=== PATIENT | female | born 1930 | race Caucasian/White ===

== ENCOUNTER 2016-08-11 04:38 | Inpatient (IN) | payer MEDICARE, MEDICAID ==
[2016-08-11] VITALS (20 sets, daily range): BP systolic 124–183; RESP 13–28; TEMP 98.4–99; Ht 152.4 cm; Wt 59.0 kg
[~2016-08-11] VITALS: Ht 152.4 cm; Wt 59.0 kg
[2016-08-11] MEDS ORDERED: DUONEB INH ONE (04:54)
[2016-08-11] MEDS ORDERED: NEB-XOPENEX 1.25 MG/3 ML INH ONE ×2 (05:16→05:20)
[2016-08-11] MEDS ORDERED: Furosemide 40 MG/4 ML VIAL ONE (05:20)
[2016-08-11] MEDS ORDERED: METHYLPRED SOD SUCC 125 MG/2 ML VIAL ONE (05:20)
[2016-08-11] MEDS ORDERED: NITROGLYCERIN/D5W 250 ML IV ONE (05:21)
[2016-08-11] MEDS ORDERED: VANCOMYCIN 2,000 MG in SODIUM CHLORIDE 0.9% 500 ML IV ONE (05:25)
[2016-08-11] MEDS ORDERED: SODIUM CHLORIDE 0.9% 500 ML IV ONE (05:35)
[2016-08-11] MEDS ORDERED: CEFEPIME 1,000 MG in SODIUM CHLORIDE 0.9% 100 ML IV ONE (05:45)
[2016-08-11] MEDS ORDERED: NEB-XOPENEX 0.63 MG/3 ML INH PRN (06:20)
[2016-08-11] MEDS ORDERED: ACETAMINOPHEN 325 MG TAB PO PRN (06:20)
[2016-08-11] MEDS ORDERED: PHARMACY TO DOSE VANCOMYCIN IV SCH (06:20)
[2016-08-11] MEDS ORDERED: VANCOMYCIN 500 MG in SODIUM CHLORIDE 0.9% 100 ML IV ONE (06:40)
[2016-08-11] MEDS: DUONEB INH SCH ×5 (07:00→22:08)
[2016-08-11] MEDS: Furosemide 40 MG/4 ML VIAL IV SCH ×2 (07:48→20:15)
[2016-08-11] MEDS: CEFTRIAXONE 1 GM in SODIUM CHLORIDE 0.9% 50 ML IV SCH (07:57)
[2016-08-11] MEDS ORDERED: GLUCAGON 1 MG VIAL IM PRN (09:55)
[2016-08-11] MEDS ORDERED: DEXTROSE 50% SYRINGE 50 ML IV PRN (09:55)
[2016-08-11] MEDS: ENOXAPARIN 30 MG/0.3 ML SYR SUBQ SCH (11:56)
[2016-08-11] MEDS: METHYLPRED SOD SUCC 125 MG/2 ML VIAL IV SCH ×3 (11:56→23:31)
[2016-08-11] MEDS: OXYCODONE/APAP 5/325 TAB PO PRN ×2 (16:45→22:31)
[2016-08-11] MEDS: FAMOTIDINE 20 MG INJ IV SCH (20:15)
[2016-08-11] MEDS: Carvedilol 6.25 MG TAB PO SCH (20:16)
[2016-08-11] MEDS: DOCUSATE SOD 100 MG CAP PO SCH (20:16)
[2016-08-12] VITALS (24 sets, daily range): BP systolic 139–188; RESP 13–31; TEMP 97.6–98.7
[2016-08-12] MEDS: DUONEB INH SCH ×6 (02:26→23:10)
[2016-08-12] MEDS: OXYCODONE/APAP 5/325 TAB PO PRN ×2 (04:54→09:37)
[2016-08-12] MEDS: VANCOMYCIN 1,000 MG in SODIUM CHLORIDE 0.9% 250 ML IV SCH (06:14)
[2016-08-12] MEDS: METHYLPRED SOD SUCC 125 MG/2 ML VIAL IV SCH ×3 (06:16→18:02)
[2016-08-12] MEDS: CEFTRIAXONE 1 GM in SODIUM CHLORIDE 0.9% 50 ML IV SCH (08:43)
[2016-08-12] MEDS: DOCUSATE SOD 100 MG CAP PO SCH ×2 (08:46→19:57)
[2016-08-12] MEDS: FAMOTIDINE 20 MG INJ IV SCH ×2 (08:47→19:56)
[2016-08-12] MEDS: Carvedilol 6.25 MG TAB PO SCH ×2 (08:47→19:57)
[2016-08-12] MEDS: Furosemide 40 MG/4 ML VIAL IV SCH ×2 (08:47→19:56)
[2016-08-12] MEDS: ENOXAPARIN 30 MG/0.3 ML SYR SUBQ SCH (08:48)
[2016-08-12] MEDS ORDERED: oxyCODONE/APAP 10/325 TABLET PO PRN (12:50)
[2016-08-12] MEDS: LEVEMIR INSULIN SUBQ SCH ×2 (13:41→17:00)
[2016-08-12] MEDS: PREGABALIN 25 MG CAP PO SCH ×2 (13:41→19:57)
[2016-08-12] MEDS: oxyCODONE/APAP 10/325 TABLET PO PRN ×2 (13:50→19:59)
[2016-08-13] VITALS (24 sets, daily range): BP systolic 135–179; RESP 10–25; TEMP 98–98.7
[2016-08-13] MEDS: METHYLPRED SOD SUCC 125 MG/2 ML VIAL IV SCH ×4 (00:53→17:54)
[2016-08-13] MEDS: oxyCODONE/APAP 10/325 TABLET PO PRN ×4 (02:20→21:13)
[2016-08-13] MEDS: DUONEB INH SCH ×6 (02:50→22:19)
[2016-08-13] MEDS: VANCOMYCIN 1,000 MG in SODIUM CHLORIDE 0.9% 250 ML IV SCH (05:49)
[2016-08-13] MEDS: CEFTRIAXONE 1 GM in SODIUM CHLORIDE 0.9% 50 ML IV SCH (08:51)
[2016-08-13] MEDS: Furosemide 40 MG/4 ML VIAL IV SCH ×2 (08:53→20:06)
[2016-08-13] MEDS: LACTULOSE SOLN 20GM/30ML UDC PO SCH (08:53)
[2016-08-13] MEDS: Carvedilol 6.25 MG TAB PO SCH ×2 (08:54→20:07)
[2016-08-13] MEDS: DOCUSATE SOD 100 MG CAP PO SCH ×2 (08:54→20:07)
[2016-08-13] MEDS: PREGABALIN 25 MG CAP PO SCH ×2 (08:54→20:07)
[2016-08-13] MEDS: MULTIVITS/MIN (OCUVITE) TAB PO SCH (08:54)
[2016-08-13] MEDS: FAMOTIDINE 20 MG INJ IV SCH ×2 (08:54→20:07)
[2016-08-13] MEDS: ENOXAPARIN 30 MG/0.3 ML SYR SUBQ SCH (08:55)
[2016-08-13] MEDS: LEVEMIR INSULIN SUBQ SCH ×2 (08:56→17:53)
[2016-08-14] VITALS (20 sets, daily range): BP systolic 121–187; RESP 10–26; TEMP 97.8–98.5
[2016-08-14] MEDS: METHYLPRED SOD SUCC 125 MG/2 ML VIAL IV SCH ×3 (00:44→12:23)
[2016-08-14] MEDS: OXYCODONE/APAP 5/325 TAB PO PRN ×3 (00:44→16:38)
[2016-08-14] MEDS: DUONEB INH SCH ×6 (02:30→22:09)
[2016-08-14] MEDS: VANCOMYCIN 1,000 MG in SODIUM CHLORIDE 0.9% 250 ML IV SCH (06:45)
[2016-08-14] MEDS: LEVEMIR INSULIN SUBQ SCH ×2 (08:00→17:00)
[2016-08-14] MEDS: FAMOTIDINE 20 MG INJ IV SCH (08:53)
[2016-08-14] MEDS: Furosemide 40 MG/4 ML VIAL IV SCH ×2 (08:53→21:16)
[2016-08-14] MEDS: DOCUSATE SOD 100 MG CAP PO SCH ×2 (08:56→21:15)
[2016-08-14] MEDS: Carvedilol 6.25 MG TAB PO SCH ×2 (08:56→21:16)
[2016-08-14] MEDS: PREGABALIN 25 MG CAP PO SCH ×2 (08:56→21:16)
[2016-08-14] MEDS: LACTULOSE SOLN 20GM/30ML UDC PO SCH (08:56)
[2016-08-14] MEDS: MULTIVITS/MIN (OCUVITE) TAB PO SCH (08:57)
[2016-08-14] MEDS: ENOXAPARIN 30 MG/0.3 ML SYR SUBQ SCH (08:58)
[2016-08-14] MEDS: CEFTRIAXONE 1 GM in SODIUM CHLORIDE 0.9% 50 ML IV SCH (08:59)
[2016-08-14] MEDS: oxyCODONE/APAP 10/325 TABLET PO PRN ×2 (12:23→21:26)
[2016-08-14] MEDS ORDERED: LEVEMIR INSULIN SUBQ SCH (17:35)
[2016-08-15] VITALS (7 sets, daily range): BP systolic 153–184; RESP 16–20; TEMP 97.3–98.5
[2016-08-15] MEDS: DUONEB INH SCH ×5 (02:11→18:55)
[2016-08-15] MEDS: oxyCODONE/APAP 10/325 TABLET PO PRN ×4 (03:31→23:31)
[2016-08-15] MEDS ORDERED: VANCOMYCIN 1,250 MG in SODIUM CHLORIDE 0.9% 250 ML IV SCH (06:00)
[2016-08-15] MEDS: PANTOPRAZOLE 40 MG TAB PO SCH (06:26)
[2016-08-15] MEDS: CEFTRIAXONE 1 GM in SODIUM CHLORIDE 0.9% 50 ML IV SCH (09:05)
[2016-08-15] MEDS: METHYLPRED SOD SUCC 125 MG/2 ML VIAL IV SCH ×2 (09:06→21:15)
[2016-08-15] MEDS: Furosemide 40 MG/4 ML VIAL IV SCH ×2 (09:06→21:15)
[2016-08-15] MEDS: LACTULOSE SOLN 20GM/30ML UDC PO SCH (09:08)
[2016-08-15] MEDS: LEVEMIR INSULIN SUBQ SCH ×2 (09:08→17:58)
[2016-08-15] MEDS: DOCUSATE SOD 100 MG CAP PO SCH ×2 (09:08→21:14)
[2016-08-15] MEDS: MULTIVITS/MIN (OCUVITE) TAB PO SCH (09:09)
[2016-08-15] MEDS: PREGABALIN 25 MG CAP PO SCH ×2 (09:09→21:14)
[2016-08-15] MEDS: Carvedilol 6.25 MG TAB PO SCH ×2 (09:10→21:32)
[2016-08-15] MEDS: ENOXAPARIN 30 MG/0.3 ML SYR SUBQ SCH (09:10)
[2016-08-15] MEDS ORDERED: FLEET ENEMA 132 ML BTL RECTAL PRN (20:15)
[2016-08-15] MEDS ORDERED: MISSING DOSE XX ONE (20:20)
[2016-08-15] MEDS: KCL CR 8 MEQ TAB PO SCH (21:14)
[2016-08-15] MEDS: POLYETHYLENE GLYCOL 17 GM PACKET PO SCH (21:32)
[2016-08-15] MEDS: LIDOCAINE 5% 700 MG PATCH TOPICAL SCH (21:32)
[2016-08-15] MEDS: NEB-ATROVENT INH SCH (23:52)
[2016-08-15] MEDS: NEB-XOPENEX 0.63 MG/3 ML INH SCH (23:52)
[2016-08-16 03:50] VITALS: BP_SYST 182; RESP 16; TEMP 98.8
[2016-08-16] MEDS: oxyCODONE/APAP 10/325 TABLET PO PRN ×3 (05:35→18:01)
[2016-08-16] MEDS: NEB-ATROVENT INH SCH ×4 (07:01→23:53)
[2016-08-16] MEDS: NEB-BUDESONIDE 0.5 MG INH SCH ×2 (07:01→20:02)
[2016-08-16] MEDS: NEB-XOPENEX 0.63 MG/3 ML INH SCH ×3 (07:02→20:02)
[2016-08-16 07:26] VITALS: BP_SYST 181; RESP 18; TEMP 98
[2016-08-16] MEDS: PANTOPRAZOLE 40 MG TAB PO SCH (07:38)
[2016-08-16] MEDS: METHYLPRED SOD SUCC 125 MG/2 ML VIAL IV SCH (09:24)
[2016-08-16] MEDS: MULTIVITS/MIN (OCUVITE) TAB PO SCH (09:24)
[2016-08-16] MEDS: DOCUSATE SOD 100 MG CAP PO SCH ×2 (09:24→20:20)
[2016-08-16] MEDS: LACTULOSE SOLN 20GM/30ML UDC PO SCH (09:24)
[2016-08-16] MEDS: Furosemide 40 MG/4 ML VIAL IV SCH ×2 (09:24→20:20)
[2016-08-16] MEDS: POLYETHYLENE GLYCOL 17 GM PACKET PO SCH ×3 (09:24→20:21)
[2016-08-16] MEDS: CEFTRIAXONE 1 GM in SODIUM CHLORIDE 0.9% 50 ML IV SCH (09:24)
[2016-08-16] MEDS: Carvedilol 6.25 MG TAB PO SCH ×2 (09:24→20:20)
[2016-08-16] MEDS: PREGABALIN 25 MG CAP PO SCH ×2 (09:24→20:21)
[2016-08-16] MEDS: KCL CR 8 MEQ TAB PO SCH ×3 (09:25→20:21)
[2016-08-16] MEDS: LIDOCAINE 5% 700 MG PATCH TOPICAL SCH (09:25)
[2016-08-16] MEDS: ENOXAPARIN 30 MG/0.3 ML SYR SUBQ SCH (09:25)
[2016-08-16] MEDS: LEVEMIR INSULIN SUBQ SCH ×2 (09:26→18:19)
[2016-08-16 11:23] VITALS: BP_SYST 181; RESP 20; TEMP 98.3
[2016-08-16 15:52] VITALS: BP_SYST 180; RESP 20; TEMP 98.1
[2016-08-16 19:09] VITALS: BP_SYST 198; TEMP 98
[2016-08-16 23:21] VITALS: BP_SYST 181; RESP 18; TEMP 98.2
[2016-08-17] MEDS: oxyCODONE/APAP 10/325 TABLET PO PRN ×4 (00:09→19:58)
[2016-08-17 03:43] VITALS: BP_SYST 157; RESP 18; TEMP 98.4
[2016-08-17] MEDS: NEB-ATROVENT INH SCH ×4 (06:08→23:33)
[2016-08-17] MEDS: NEB-XOPENEX 0.63 MG/3 ML INH SCH ×3 (06:08→18:46)
[2016-08-17] MEDS: NEB-BUDESONIDE 0.5 MG INH SCH ×2 (06:08→18:46)
[2016-08-17] MEDS: PANTOPRAZOLE 40 MG TAB PO SCH (07:00)
[2016-08-17 07:53] VITALS: BP_SYST 177; RESP 18; TEMP 97.8
[2016-08-17] MEDS ORDERED: METHYLPRED SOD SUCC 125 MG/2 ML VIAL IV SCH (09:00)
[2016-08-17] MEDS: CEFTRIAXONE 1 GM in SODIUM CHLORIDE 0.9% 50 ML IV SCH (09:23)
[2016-08-17] MEDS: POLYETHYLENE GLYCOL 17 GM PACKET PO SCH ×3 (09:24→21:00)
[2016-08-17] MEDS: PREGABALIN 25 MG CAP PO SCH ×3 (09:24→21:00)
[2016-08-17] MEDS: KCL CR 8 MEQ TAB PO SCH ×3 (09:25→19:57)
[2016-08-17] MEDS: DOCUSATE SOD 100 MG CAP PO SCH ×2 (09:25→21:00)
[2016-08-17] MEDS: LACTULOSE SOLN 20GM/30ML UDC PO SCH (09:25)
[2016-08-17] MEDS: Carvedilol 6.25 MG TAB PO SCH ×2 (09:25→19:58)
[2016-08-17] MEDS: Furosemide 40 MG/4 ML VIAL IV SCH ×2 (09:26→20:00)
[2016-08-17] MEDS: ENOXAPARIN 30 MG/0.3 ML SYR SUBQ SCH (09:27)
[2016-08-17] MEDS: MULTIVITS/MIN (OCUVITE) TAB PO SCH (09:27)
[2016-08-17] MEDS: LIDOCAINE 5% 700 MG PATCH TOPICAL SCH (09:28)
[2016-08-17] MEDS: LEVEMIR INSULIN SUBQ SCH (09:54)
[2016-08-17 10:17] VITALS: BP_SYST 188; RESP 18; TEMP 97.7
[2016-08-17 15:26] VITALS: BP_SYST 147; RESP 18; TEMP 98.2
[2016-08-17] MEDS ORDERED: LEVEMIR INSULIN SUBQ SCH (16:00)
[2016-08-17 19:30] VITALS: BP_SYST 182; RESP 18; TEMP 97.5
[2016-08-17 23:28] VITALS: BP_SYST 151; RESP 18; TEMP 97.9
[2016-08-18] MEDS: oxyCODONE/APAP 10/325 TABLET PO PRN ×2 (02:14→08:26)
[2016-08-18 03:49] VITALS: BP_SYST 136; RESP 18; TEMP 97.8
[2016-08-18] MEDS: PANTOPRAZOLE 40 MG TAB PO SCH (06:31)
[2016-08-18] MEDS: NEB-XOPENEX 0.63 MG/3 ML INH SCH ×2 (06:39→11:37)
[2016-08-18] MEDS: NEB-ATROVENT INH SCH ×2 (06:39→11:37)
[2016-08-18] MEDS: NEB-BUDESONIDE 0.5 MG INH SCH (06:39)
[2016-08-18 07:13] VITALS: BP_SYST 173; RESP 16; TEMP 98.1
[2016-08-18] MEDS: Furosemide 40 MG/4 ML VIAL IV SCH (08:27)
[2016-08-18] MEDS: PREGABALIN 25 MG CAP PO SCH (08:28)
[2016-08-18] MEDS: MULTIVITS/MIN (OCUVITE) TAB PO SCH (08:29)
[2016-08-18] MEDS: KCL CR 8 MEQ TAB PO SCH (08:29)
[2016-08-18] MEDS: LACTULOSE SOLN 20GM/30ML UDC PO SCH (08:30)
[2016-08-18] MEDS: Carvedilol 6.25 MG TAB PO SCH (08:30)
[2016-08-18] MEDS: DOCUSATE SOD 100 MG CAP PO SCH (08:30)
[2016-08-18] MEDS: POLYETHYLENE GLYCOL 17 GM PACKET PO SCH (08:30)
[2016-08-18] MEDS: ENOXAPARIN 30 MG/0.3 ML SYR SUBQ SCH (08:30)
[2016-08-18] MEDS ORDERED: PREDNISONE 20 MG TAB PO SCH (09:00)
[2016-08-18] MEDS: LEVEMIR INSULIN SUBQ SCH (09:21)
[2016-08-18 10:54] VITALS: BP_SYST 173; RESP 16; TEMP 98.1
[2016-08-18 10:55] VITALS: BP_SYST 136; RESP 16; TEMP 97.5
== END 2016-08-18 13:05 | disposition home or self-care (01) | DRG 291 ==
LOC: ENRESERVDT → ENRESERVTM → ER 04:38 → ENPENDDIS 06:16 → EMR 06:16 → ICU 07:00 → 4NT 08-14 20:08
PROVIDERS: ADMIT Internal Medicine; ATTEND Internal Medicine
DX: I50.33 Acute on chronic diastolic (congestive) heart failure (principal); J96.01 Acute respiratory failure with hypoxia; J96.02 Acute respiratory failure with hypercapnia; J18.9 Pneumonia, unspecified organism; J44.0 Chronic obstructive pulmonary disease with (acute) lower respiratory infection; E11.65 Type 2 diabetes mellitus with hyperglycemia; F03.90 Unspecified dementia, unspecified severity, without behavioral disturbance, psychotic disturbance, mood disturbance, and anxiety; N18.3 Chronic kidney disease, stage 3 (moderate); I13.0 Hypertensive heart and chronic kidney disease with heart failure and stage 1 through stage 4 chronic kidney disease, or unspecified chronic kidney disease; J44.1 Chronic obstructive pulmonary disease with (acute) exacerbation; G89.4 Chronic pain syndrome; Z95.1 Presence of aortocoronary bypass graft; Z86.73 Personal history of transient ischemic attack (TIA), and cerebral infarction without residual deficits
CPT/HCPCS: 36415; 36600; 71010; 80048; 80053; 80202; 82306; 82553; 82607; 82746; 82803; 82947; 83605; 83735; 83880; 84439; 84443; 84484; 85025; 87040; 87077; 87186; 87493; 93005; 94640; 94660; 94762; 94799; 96365; 96367; 96375